=== PATIENT | male | born 1960 | race Caucasian/White ===

== ENCOUNTER 2017-08-22 15:25 | Inpatient (IN) | payer OTHER ==
[2017-08-22] MEDS ORDERED: SODIUM CHLORIDE 0.9% 1,000 ML IV STA (15:48)
[2017-08-22 16:20] LABS: HCT 20.4 % (39.0-53.0); MCH 33.2 pg (25.0-35.0); MCHC 34.3 g/dL (31.0-37.0); MCV 96.7 fL (80.0-100.0); Macrocytosis Slight; Mean Platelet Volume 7.2; Platelet Count 301 k/uL (150-450); RBC 2.11 m/uL (4.30-5.90); RDW 15.9 % (11.5-15.5); WBC 20.3 k/uL (3.8-10.6)
[2017-08-22] MEDS ORDERED: METOCLOPRAMIDE 5 MG/ML 2 ML VIAL IVP STA (16:21)
[2017-08-22] MEDS ORDERED: MECLIZINE 12.5 MG TAB PO STA (16:21)
[2017-08-22 16:27] LABS: ALT 31 U/L (21-72); AST 28 U/L (17-59); Albumin 2.9 g/dL (3.5-5.0); Alkaline Phosphatase 42 U/L (38-126); Anion Gap 9 mmol/L; Blood Urea Nitrogen 37 mg/dL (9-20); Calcium 8.3 mg/dL (8.4-10.2); Carbon Dioxide 22 mmol/L (22-30); Chloride 109 mmol/L (98-107); Glucose 151 mg/dL (74-99); Lipase 130 U/L (23-300); Potassium 4.4 mmol/L (3.5-5.1); Sodium 140 mmol/L (137-145); Total Bilirubin <0.1 mg/dL (0.2-1.3); Total Protein 5.4 g/dL (6.3-8.2)
[2017-08-22 17:10] LABS: Lymphocytes # (M) 5.89 k/uL (1.0-4.8); Neutrophils % (M) 59 %
[2017-08-22 17:11] LABS: Band Neutrophils % 6 %; Monocytes # (M) 1.02 k/uL (0-1.0); Nucleated Red Blood Cells 0 /100 WBC (0-0); Total Cells Counted 100
--- NOTE | 2017-08-22 17:19 | CT ---
EXAMINATION TYPE: CT brain wo con DATE OF EXAM: 08/22/2017 COMPARISON: NONE HISTORY: Dizziness x2 days CT DLP: 1061.[address] of the brain was performed. The ventricles, basal cisterns and sulci overlying the cerebral convexities demonstrate a normal appe arance. There is no evidence for intracranial hemorrhage or sulcal effacement. No mass effects are seen. Osseous calvarium is intact. If symptoms persist consider MRI as clinically warranted. IMPRESSION: 1. No acute intracranial process is seen at this time.
--- NOTE | 2017-08-22 17:20 | ED ---
General Adult HPI - General Chief complaint: Dizziness Stated complaint: Dizziness Time Seen by Provider: 08/22/17 15:47 Source: patient, EMS, RN notes reviewed Mode of arrival: EMS Limitations: no limitations - History of Present Illness Initial comments: This is a 56-year-old male presents emergency department via EMS chief complaint of dizziness, shortness of breath. Patient states symptoms started over the weekend progressively gotten worse. He states he just feels more lightheaded feels has not passed out. He has no current chest pain or shortness breath. He does take medications for hypertension. Patient adds in that he is [facility] trying to get sober from alcohol. Patient states that he wanted rehab prior to this. Patient states she 's also had some intermittent blurred vision states that it seems to come and go no current blurred vision. Denies any focal weakness. Patient denies any abdominal pain including nausea, vomiting diarrhea constipation. Patient denies any dysuria no hematuria. - Related Data Home Medications Medication Instructions Recorded Confirmed Gabapentin [Neurontin] 300 mg PO [facility] 08/22/17 08/22/17 Gabapentin [Neurontin] 600 mg PO 08/22/17 08/22/17 Lisinopril [Prinivil] 10 mg PO DAILY 08/22/17 08/22/17 Loratadine [Claritin] 10 mg PO DAILY 08/22/17 08/22/17 traZODone HCL [Desyrel] 100 mg PO HS 08/22/17 08/22/17 Allergies Allergy/AdvReac Type Severity Reaction Status Date / Time No Known Allergies Allergy Verified 08/22/17 16:27 Review of Systems ROS Statement: Those systems with pertinent positive or pertinent negative responses have been documented in the HPI. ROS Other: All systems not noted in ROS Statement are negative. Past Medical History Past Medical History: Hypertension, Sleep Apnea/CPAP/BIPAP History of Any Multi-Drug Resistant Organisms: None Reported Past Surgical History: Cholecystectomy Past Psychological History: Depression Smoking Status: Current every day smoker Past Alcohol Use History: Abuse Past Drug Use History: None Reported General Exam Limitations: no limitations General appearance: alert, in no apparent distress Head exam: Present: atraumatic, normocephalic, normal inspection Eye exam: Present: normal appearance, PERRL, EOMI. Absent: scleral icterus, conjunctival injection, periorbital swelling ENT exam: Present: normal exam, mucous membranes moist Neck exam: Present: normal inspection, full ROM. Absent: tenderness, meningismus, lymphadenopathy Respiratory exam: Present: normal lung sounds bilaterally. Absent: respiratory distress, wheezes, rales, rhonchi, stridor Cardiovascular Exam: Present: normal rhythm, tachycardia, normal heart sounds. Absent: systolic murmur, diastolic murmur, rubs, gallop, clicks GI/Abdominal exam: Present: soft, normal bowel sounds. Absent: distended, tenderness, guarding, rebound, rigid Neurological exam: Present: alert, oriented X3, CN II-XII intact, reflexes normal. Absent: motor sensory deficit Skin exam: Present: warm, dry, intact, normal color. Absent: rash Course Vital Signs 08/22/17 08/22/17 15:40 16:12 Temperature 97.8 F Pulse Rate 110 H 100 Respiratory 18 19 Rate Blood Pressure 137/58 102/50 O2 Sat by Pulse 96 97 Oximetry - Reevaluation(s) Reevaluation #1: 08/22/17 17:19 Patient updated on hemoglobin current 7.0. Patient states that he has had some black tarry stools., No history of anemia. EKG Findings - EKG Comments: EKG Findings:: EKG performed at 15:50 sinus tachycardia with a rate of 104 GA 162 QRS 80 QT/QTC 350/460 Medical Decision Making - Medical Decision Making 56-year-old male presents emergency Department chief complaint of feeling dizzy short of breath. Patient started to have anemia hemoglobin 7. Patient complains of black tarry stools. He refuses rectal exam at this time. Patient was started on Protonix given 1 unit of blood. Patient does have moderate leukocytosis no focal signs of infection at this time. Patient is stable he'll be admitted with transfusion, every 6 H&H and consult GI. - Lab Data Result diagrams: 08/22/17 16:08 08/22/17 16:08 Lab Results 08/22/17 08/22/17 08/22/17 Range/Units 16:08 16:08 16:08 WBC 20.3 H (3.8-10.6) k/uL RBC 2.11 L (4.30-5.90) m/uL Hgb 7.0 L* (13.0-17.5) gm/dL Hct 20.4 L (39.0-53.0) % MCV 96.7 (80.0-100.0) fL MCH 33.2 (25.0-35.0) pg MCHC 34.3 (31.0-37.0) g/dL RDW 15.9 H (11.5-15.5) % Plt Count 301 (150-450) k/uL Neutrophils % (Manual) 59 % Band Neutrophils % 6 % Lymphocytes % (Manual) 29 % Monocytes % (Manual) 5 % Eosinophils % (Manual) 1 % Neutrophils # (Manual) 13.10 H (1.3-7.7) k/uL Lymphocytes # (Manual) 5.89 H (1.0-4.8) k/uL Monocytes # (Manual) 1.02 H (0-1.0) k/uL Eosinophils # (Manual) 0.20 (0-0.7) k/uL Nucleated RBCs 0 (0-0) /100 WBC Manual Slide Review Performed Macrocytosis Slight D-Dimer (<0.60) mg/L FEU Sodium 140 (137-145) mmol/L Potassium 4.4 (3.5-5.1) mmol/L Chloride 109 H (98-107) mmol/L Carbon Dioxide 22 (22-30) mmol/L Anion Gap 9 mmol/L BUN 37 H (9-20) mg/dL Creatinine 0.80 (0.66-1.25) mg/dL Est GFR (CKD-EPI)AfAm >90 (>60 ml/min/1.73 sqM) Est GFR (CKD-EPI)NonAf >90 (>60 ml/min/1.73 sqM) Glucose 151 H (74-99) mg/dL Calcium 8.3 L (8.4-10.2) mg/dL Total Bilirubin <0.1 L (0.2-1.3) mg/dL AST 28 (17-59) U/L ALT 31 (21-72) U/L Alkaline Phosphatase 42 (38-126) U/L Troponin I <0.012 (0.000-0.034) ng/mL Total Protein 5.4 L (6.3-8.2) g/dL Albumin 2.9 L (3.5-5.0) g/dL Lipase 130 (23-300) U/L Blood Type Blood Type Recheck Antibody Screen Crossmatch Spec Expiration Date 08/22/17 08/22/17 Range/Units 16:08 16:08 WBC (3.8-10.6) k/uL RBC (4.30-5.90) m/uL Hgb (13.0-17.5) gm/dL Hct (39.0-53.0) % MCV (80.0-100.0) fL MCH (25.0-35.0) pg MCHC (31.0-37.0) g/dL RDW (11.5-15.5) % Plt Count (150-450) k/uL Neutrophils % (Manual) % Band Neutrophils % % Lymphocytes % (Manual) % Monocytes % (Manual) % Eosinophils % (Manual) % Neutrophils # (Manual) (1.3-7.7) k/uL Lymphocytes # (Manual) (1.0-4.8) k/uL Monocytes # (Manual) (0-1.0) k/uL Eosinophils # (Manual) (0-0.7) k/uL Nucleated RBCs (0-0) /100 WBC Manual Slide Review Macrocytosis D-Dimer 0.26 (<0.60) mg/L FEU Sodium (137-145) mmol/L Potassium (3.5-5.1) mmol/L Chloride (98-107) mmol/L Carbon Dioxide (22-30) mmol/L Anion Gap mmol/L BUN (9-20) mg/dL Creatinine (0.66-1.25) mg/dL Est GFR (CKD-EPI)AfAm (>60 ml/min/1.73 sqM) Est GFR (CKD-EPI)NonAf (>60 ml/min/1.73 sqM) Glucose (74-99) mg/dL Calcium (8.4-10.2) mg/dL Total Bilirubin (0.2-1.3) mg/dL AST (17-59) U/L ALT (21-72) U/L Alkaline Phosphatase (38-126) U/L Troponin I (0.000-0.034) ng/mL Total Protein (6.3-8.2) g/dL Albumin (3.5-5.0) g/dL Lipase (23-300) U/L Blood Type B Negative Blood Type Recheck CABO Indicated Antibody Screen NEGATIVE Crossmatch See Detail Spec Expiration Date 08/25/20172307 Disposition Clinical Impression: Anemia, Melena, Dizziness, Shortness of breath, Leukocytosis Disposition: ADMITTED IP TO THIS [facility] Condition: Fair Referrals: None,Stated [Primary Care Provider] - 1-2 days
--- NOTE | 2017-08-22 17:21 | XR ---
EXAMINATION TYPE: XR chest 2V DATE OF EXAM: 08/22/2017 CLINICAL HISTORY: Chest pain TECHNIQUE: Frontal and lateral views of the chest are obtained. COMPARISON: None FINDINGS: There is no focal air space opacity, pleural effusion, or pneumothorax seen. The cardiac silhouette size is within normal limits. The osseous structures are intact. IMPRESSION: No acute cardiopulmonary process.
[2017-08-22] MEDS ORDERED: PANTOPRAZOLE 40 MG/10 ML VIAL IVP STA (17:29)
[2017-08-22] MEDS ORDERED: ONDANSETRON 4 MG/2 ML VIAL IVP PRN (17:31)
[2017-08-22 18:20] LABS: Appearance,Urine Clear (Clear); Bilirubin,Urine Negative (Negative); Blood,Urine Negative (Negative); Color,Urine Yellow; Glucose,Urine (UA) Negative (Negative); Ketones,Urine Negative (Negative); Leukocyte Esterase,Urine Negative (Negative); Nitrite,Urine Negative (Negative); PH, Urine 5.5 (5.0-8.0); Protein,Urine Negative (Negative); Specific Gravity,Urine 1.021 (1.001-1.035); Urobilinogen,Urine <2.0 mg/dL (<2.0)
[2017-08-22] MEDS: SODIUM CHLORIDE 0.9% 1,000 ML IV SCH (21:32)
[2017-08-22] MEDS: traZODone HCL 100 MG TAB PO SCH (21:46)
[2017-08-22] MEDS: PANTOPRAZOLE 40 MG/10 ML VIAL IVP SCH (21:46)
[2017-08-22] MEDS: GABAPENTIN 300 MG CAP PO SCH (21:46)
[2017-08-22] MEDS: ACETAMINOPHEN TAB 325 MG TAB PO PRN (23:42)
[2017-08-23] MEDS ORDERED: SODIUM CHLORIDE 0.9% 500 ML IV ONE (00:51)
[2017-08-23] MEDS: SODIUM CHLORIDE 0.9% 1,000 ML IV SCH ×4 (01:52→22:07)
[2017-08-23 03:11] LABS: Anisocytosis Slight; Basophils # (A) 0.1 k/uL (0-0.2); Basophils % (A) 1 %; Eosinophils # (A) 0.2 k/uL (0-0.7); Eosinophils % (A) 1 %; Lymphocytes % (A) 33 %; MCH 32.7 pg (25.0-35.0); MCHC 33.3 g/dL (31.0-37.0); MCV 98.2 fL (80.0-100.0); Macrocytosis Slight; Mean Platelet Volume 7.4; Monocytes # (A) 0.8 k/uL (0-1.0); Monocytes % (A) 5 %; Neutrophils # (A) 9.1 k/uL (1.3-7.7); Neutrophils % (A) 59 %; Platelet Count 235 k/uL (150-450); RBC 1.95 m/uL (4.30-5.90); RDW 16.9 % (11.5-15.5); WBC 15.4 k/uL (3.8-10.6)
[2017-08-23 03:24] LABS: ALT 29 U/L (21-72); AST 27 U/L (17-59); Albumin 2.3 g/dL (3.5-5.0); Alkaline Phosphatase 37 U/L (38-126); Anion Gap 7 mmol/L; Blood Urea Nitrogen 31 mg/dL (9-20); Calcium 7.8 mg/dL (8.4-10.2); Carbon Dioxide 22 mmol/L (22-30); Chloride 109 mmol/L (98-107); Glucose 105 mg/dL (74-99); Potassium 4.1 mmol/L (3.5-5.1); Sodium 138 mmol/L (137-145); Total Bilirubin 0.3 mg/dL (0.2-1.3); Total Protein 4.6 g/dL (6.3-8.2)
[2017-08-23 03:45] LABS: HGB 6.4 gm/dL (13.0-17.5)
[2017-08-23 03:47] LABS: HCT 19.2 % (39.0-53.0)
[2017-08-23] MEDS: ACETAMINOPHEN TAB 325 MG TAB PO PRN ×2 (05:53→20:51)
[2017-08-23 06:25] LABS: Polychromasia Present
[2017-08-23] MEDS: GABAPENTIN 300 MG CAP PO SCH ×2 (08:40→20:48)
[2017-08-23] MEDS: LISINOPRIL 10 MG TAB PO SCH ×2 (08:40→08:41)
[2017-08-23] MEDS: PANTOPRAZOLE 40 MG/10 ML VIAL IVP SCH ×2 (08:41→20:48)
--- NOTE | 2017-08-23 09:22 | P.CONS ---
History of Present Illness - Reason for Consult Consult date: 08/23/17 Anemia melena Requesting physician: Diamante Molina - History of Present Illness 56-year-old gentleman recovering alcoholic sober since May, PM sleep apnea , chronic back pain, nicotine cigarette dependency, depression, and hypertension admitted with lightheadedness weakness since Monday with a 2 week history of 1 to 3 black colored bowel movements daily. Denies chest pain Admission hemoglobin 7 decreased to 6.4 he is receiving 2 units of blood. MCV 98. Platelet 235. BUN 37. Creatinine 0.8. Last dark colored black bowel movement was yesterday. Denies abdominal pain fever chills or weight loss. No history of GI bleed or peptic ulcer disease. No history of EGD colonoscopy. No NSAIDs aspirin or alcohol. Review of Systems Constitutional: Denies fever, chills, sweats, weight gain, or loss. Admitted with lightheadedness dizziness weakness. HEENT: Negative for migraines, blurred vision or loss, earaches, drainage, tinnitus, oral mucosal lesions, dysphagia, or odynophagia. Cardiac: Negative for chest pain, arrhythmias, or palpitation. Respiratory: Negative for shortness of breath, hemoptysis, cough, or sputum production. Gastrointestinal: See HPI for pertinent findings. Genitourinary: Negative for hematuria, urgency, frequency, polyuria, dysuria, or penile discharge. Musculoskeletal: Negative for muscle aches, swelling, arthritis, and arthralgias. Neurologic: Negative for stroke or TIA. Endocrine: Negative for thyroid problems. Skin: Negative for rash or itching. Psychiatric: Negative history for depression and anxiety Past Medical History Past Medical History: Hypertension, Pneumonia, Sleep Apnea/CPAP/BIPAP Additional Past Medical History / Comment(s): "poor circulation", chronic back pain History of Any Multi-Drug Resistant Organisms: None Reported Past Surgical History: Cholecystectomy Past Anesthesia/Blood Transfusion Reactions: No Reported Reaction Additional Past Anesthesia/Blood Transfusion Reaction / Comm: mild clausterphobia Smoking Status: Current every day smoker - Past Family History Father Family Medical History: Cancer, Diabetes Mellitus Additional Family Medical History / Comment(s): colon cancer Mother Family Medical History: Cancer Additional Family Medical History / Comment(s): breast cancer survivor Medications and Allergies Home Medications Medication Instructions Recorded Confirmed Type Gabapentin [Neurontin] 300 mg PO QAM 08/22/17 08/22/17 History Gabapentin [Neurontin] 600 mg PO HS 08/22/17 08/22/17 History Lisinopril [Prinivil] 10 mg PO DAILY 08/22/17 08/22/17 History Loratadine [Claritin] 10 mg PO DAILY 08/22/17 08/22/17 History traZODone HCL [Desyrel] 100 mg PO HS 08/22/17 08/22/17 History Allergies Allergy/AdvReac Type Severity Reaction Status Date / Time No Known Allergies Allergy Verified 08/22/17 16:27 Physical Exam Vitals: Vital Signs Temp Pulse Pulse Resp BP BP BP 08/23/17 09:20 98.3 F 94 18 110/56 08/23/17 06:59 96.8 F L 101 H 16 84/52 08/23/17 06:29 99.6 F 101 H 16 76/52 08/23/17 06:19 97.4 F L 99 16 96/52 08/23/17 05:58 100.4 F H 66 18 110/55 08/23/17 03:21 99 94/46 08/23/17 02:12 81/45 08/23/17 02:05 98.7 F 102 H 16 79/42 08/23/17 00:34 101.4 F H 101 H 16 77/41 08/22/17 23:28 99.1 F 103 H 16 87/53 08/22/17 22:20 100 F H 100 16 95/48 08/22/17 21:51 98.4 F 99 18 95/48 08/22/17 21:41 98.9 F 103 H 18 87/46 08/22/17 21:32 98.6 F 100 16 76/53 08/22/17 18:58 98.1 F 90 18 102/51 08/22/17 17:57 99.9 F H 103 H 18 96/55 08/22/17 16:12 100 19 102/50 08/22/17 15:40 97.8 F 110 H 18 137/58 Pulse Ox 08/23/17 09:20 95 08/23/17 06:59 94 L 08/23/17 06:29 93 L 08/23/17 06:19 93 L 08/23/17 05:58 92 L 08/23/17 03:21 08/23/17 02:12 08/23/17 02:05 08/23/17 00:34 96 08/22/17 23:28 96 08/22/17 22:20 97 08/22/17 21:51 98 08/22/17 21:41 97 08/22/17 21:32 97 08/22/17 18:58 98 08/22/17 17:57 96 08/22/17 16:12 97 08/22/17 15:40 96 Intake and Output 08/22/17 08/23/17 08/23/17 22:59 06:59 14:59 Intake Total 0 310 310 Output Total 450 Balance 0 -140 310 Intake: Blood Product 0 310 310 Rc Pheresis 2 As3 Unit 0 310 [id number] Rc Pheresis 2 As3 Unit 0 310 [id number] Output: Urine 450 Other: # Voids 2 Weight 139.706 kg General appearance: The patient is alert, oriented, in no acute distress. HET: Head is normocephalic and atraumatic. Pupils are equal and reactive. Oropharynx is clear without lesions. Neck: Supple without lymphadenopathy. Trachea midline. Heart: S1 S2. Regular rate and rhythm. Lungs: No crackles or wheezes are heard. Abdomen: Soft, nontender, nondistended with bowel sounds. No peritoneal signs. No palpable organomegaly or masses. Extremities: Normal skin color and turgor. No cyanosis, rash, ulceration, clubbing, or edema. Radial and pedal pulses are 2/4 bilaterally. Neurological: No focal deficits. Strength and sensation are grossly intact. Results CBC & Chem 7: 08/24/17 08:48 08/23/17 02:50 Labs: Abnormal Lab Results - Last 24 Hours (Table) 08/22/17 08/22/17 08/22/17 Range/Units 16:08 16:08 16:08 WBC 20.3 H (3.8-10.6) k/uL RBC 2.11 L (4.30-5.90) m/uL Hgb 7.0 L* (13.0-17.5) gm/dL Hct 20.4 L (39.0-53.0) % RDW 15.9 H (11.5-15.5) % Neutrophils # (1.3-7.7) k/uL Neutrophils # (Manual) 13.10 H (1.3-7.7) k/uL Lymphocytes # (1.0-4.8) k/uL Lymphocytes # (Manual) 5.89 H (1.0-4.8) k/uL Monocytes # (Manual) 1.02 H (0-1.0) k/uL Chloride 109 H (98-107) mmol/L BUN 37 H (9-20) mg/dL Glucose 151 H (74-99) mg/dL Plasma Lactic Acid Germain (0.7-2.0) mmol/L Calcium 8.3 L (8.4-10.2) mg/dL Total Bilirubin <0.1 L (0.2-1.3) mg/dL Alkaline Phosphatase (38-126) U/L Total Protein 5.4 L (6.3-8.2) g/dL Albumin 2.9 L (3.5-5.0) g/dL Crossmatch See Detail 08/23/17 08/23/17 08/23/17 Range/Units 02:50 02:50 02:50 WBC 15.4 H (3.8-10.6) k/uL RBC 1.95 L (4.30-5.90) m/uL Hgb 6.4 L* (13.0-17.5) gm/dL Hct 19.2 L* (39.0-53.0) % RDW 16.9 H (11.5-15.5) % Neutrophils # 9.1 H (1.3-7.7) k/uL Neutrophils # (Manual) (1.3-7.7) k/uL Lymphocytes # 5.0 H (1.0-4.8) k/uL Lymphocytes # (Manual) (1.0-4.8) k/uL Monocytes # (Manual) (0-1.0) k/uL Chloride 109 H (98-107) mmol/L BUN 31 H (9-20) mg/dL Glucose 105 H (74-99) mg/dL Plasma Lactic Acid Germain 0.6 L (0.7-2.0) mmol/L Calcium 7.8 L (8.4-10.2) mg/dL Total Bilirubin (0.2-1.3) mg/dL Alkaline Phosphatase 37 L (38-126) U/L Total Protein 4.6 L (6.3-8.2) g/dL Albumin 2.3 L (3.5-5.0) g/dL Crossmatch Assessment and Plan (1) Symptomatic anemia Narrative/Plan: 56-year-old male admitted with 2 week history of melena with development of lightheadedness dizziness admission hemoglobin 7.0 decreased to 6.4 receiving 2 units of blood. Possible peptic ulcer disease possible small bowel source possible esophageal gastric varices with history of underlying EtOH abuse sober 3 months. Current Visit: Yes Status: Acute Code(s): D64.9 - ANEMIA, UNSPECIFIED SNOMED Code(s): 540707592 (2) GI bleed Current Visit: Yes Status: Acute Code(s): K92.2 - GASTROINTESTINAL HEMORRHAGE, UNSPECIFIED SNOMED Code(s): 75764658 (3) Acute blood loss anemia Current Visit: Yes Status: Acute Code(s): D62 - ACUTE POSTHEMORRHAGIC ANEMIA SNOMED Code(s): 877171985 (4) Morbid obesity with BMI of 40.0-44.9, adult Current Visit: Yes Status: Acute Code(s): E66.01 - MORBID (SEVERE) OBESITY DUE TO EXCESS CALORIES; Z68.41 - BODY MASS INDEX (BMI) 40.0-44.9, ADULT SNOMED Code(s): 108937460 (5) Melena Current Visit: Yes Status: Acute Code(s): K92.1 - MELENA SNOMED Code(s): 3326559 Plan: 1. Protonix 40 mg twice a day. 2. CBC monitoring. 3. EGD colonoscopy recommended and scheduled tomorrow. 4. Clear liquid diet. Nothing by mouth after midnight. The business services vice president has discussed the risks, benefits and alternative therapies for the above-mentioned procedure and for both sedation/analgesia as well as necessary blood product administration, if indicated, as they pertain to this patient. The patient has indicated understanding and acceptance of the risks and procedures discussed. Thank you for this kind referral and the opportunity to participate in the care of your patient. This consultation was discussed with Dr. Viveros. The impression and plan of care have been directed as dictated.
[2017-08-23 10:49] LABS: Anisocytosis Slight; Basophils # (A) 0.1 k/uL (0-0.2); Basophils % (A) 1 %; Eosinophils # (A) 0.3 k/uL (0-0.7); Eosinophils % (A) 2 %; HGB 7.1 gm/dL (13.0-17.5); Lymphocytes # (A) 4.3 k/uL (1.0-4.8); Lymphocytes % (A) 32 %; MCH 32.7 pg (25.0-35.0); MCHC 33.6 g/dL (31.0-37.0); MCV 97.3 fL (80.0-100.0); Macrocytosis Slight; Mean Platelet Volume 7.1; Monocytes # (A) 0.6 k/uL (0-1.0); Monocytes % (A) 5 %; Neutrophils % (A) 59 %; Platelet Count 241 k/uL (150-450); RBC 2.15 m/uL (4.30-5.90); RDW 17.2 % (11.5-15.5); WBC 13.5 k/uL (3.8-10.6)
[2017-08-23] MEDS ORDERED: BISACODYL 5 MG TABLET.DR PO ONE (11:00)
--- NOTE | 2017-08-23 14:11 | P.HPIM ---
History of Present Illness H&P Date: 08/22/17 Chief Complaint: Dizziness and shortness of breath Patient is a 56-year-old male with a known history of hypertension, obstructive sleep apnea on CPAP at home, alcohol abuse and has not been taking since June 03, depression and morbid obesity came to the hospital with complaints of dizziness, shortness of breath. Patient states symptoms started over the weekend progressively gotten worse. He states he just feels more lightheaded feels has not passed out. He has no current chest pain or shortness breath. He does take medications for hypertension. Patient adds in that he is [facility] to get sober from alcohol. Patient states that he wanted rehab prior to this. Patient states she's also had some intermittent blurred vision states that it seems to come and go no current blurred vision. Denies any focal weakness. Patient denies any abdominal pain including nausea, vomiting diarrhea constipation. Patient denies any dysuria no hematuria. Patient was found have dark-colored stools lab the last few days. Denied any complaints of chest pain. Hemoglobin was 7 on admission. Denied any abdominal pain. No nausea vomiting. No sharron blood in the stools. No history of NSAID use. No history of prior EGD 0r colonoscopy. CT head showed no acute intracranial process Chest x-ray negative EKG showed sinus tachycardia BUN 37 Review of Systems Constitutional: Patient denies any fever or chills . A christopher does have generalized weakness and dizziness Abdomen: Patient denied nausea vomiting and diarrhea and abdominal pain. Cardiovascular: No compressive chest pain. Patient does have exertional short of breath. No palpitations or leg swelling Respiratory: patient denied any cough is from production. Neurologic: Patient denied any numbness or tingling headache. Dizziness and lightheadedness Musculoskeletal: Patient denies any complaints of joint swelling or deformity. Skin: Negative Psychiatric: Negative Endocrine: No heat or cold intolerance. No recent weight gain. Genitourinary: No dysuria or hematuria. All other 14 point ROS negative except the above Past Medical History Past Medical History: Hypertension, Sleep Apnea/CPAP/BIPAP History of Any Multi-Drug Resistant Organisms: None Reported Past Surgical History: Cholecystectomy Past Psychological History: Depression Smoking Status: Current every day smoker Past Alcohol Use History: Abuse Past Drug Use History: None Reported - Past Family History Father Family Medical History: Cancer, Diabetes Mellitus Additional Family Medical History / Comment(s): colon cancer Mother Family Medical History: Cancer Additional Family Medical History / Comment(s): breast cancer survivor Medications and Allergies Home Medications Medication Instructions Recorded Confirmed Type Gabapentin [Neurontin] 300 mg PO QAM 08/22/17 08/22/17 History Gabapentin [Neurontin] 600 mg PO HS 08/22/17 08/22/17 History Lisinopril [Prinivil] 10 mg PO DAILY 08/22/17 08/22/17 History Loratadine [Claritin] 10 mg PO DAILY 08/22/17 08/22/17 History traZODone HCL [Desyrel] 100 mg PO HS 08/22/17 08/22/17 History Allergies Allergy/AdvReac Type Severity Reaction Status Date / Time No Known Allergies Allergy Verified 08/22/17 16:27 Physical Exam Vitals: Vital Signs Temp Pulse Resp BP Pulse Ox 08/22/17 18:58 98.1 F 90 18 102/51 98 08/22/17 17:57 99.9 F H 103 H 18 96/55 96 08/22/17 16:12 100 19 102/50 97 08/22/17 15:40 97.8 F 110 H 18 137/58 96 Intake and Output 08/22/17 08/22/17 08/22/17 06:59 14:59 22:59 Other: Weight 139.706 kg PHYSICAL EXAMINATION: Patient is lying in the bed comfortably, no acute distress, awake alert and oriented.. HEENT: Normocephalic. Neck is supple. Pupils reactive. Nostrils clear. Oral cavity is moist. Ears reveal no drainage. Neck reveals no JVD, carotid bruits, or thyromegaly. CHEST EXAMINATION: Trachea is central. Symmetrical expansion. Lung cardona clear to auscultation and percussion. CARDIAC: Normal S1, S2 with no gallops. No murmurs ABDOMEN: Soft. Bowel sounds normal. No organomegaly. No abdominal bruits. Extremities: reveal no edema. No clubbing or cyanosis Neurologically awake, alert, oriented x3 with well-coordinated movements. No focal deficits noted Skin: No rash or skin lesions. Psychiatric: Coperative. Nonsuicidal Musculoskeletal: No joint swelling or deformity. Normal range of motion. Results CBC & Chem 7: 08/23/17 10:36 08/23/17 02:50 Labs: Abnormal Lab Results - Last 24 Hours (Table) 08/22/17 08/22/17 08/22/17 Range/Units 16:08 16:08 16:08 WBC 20.3 H (3.8-10.6) k/uL RBC 2.11 L (4.30-5.90) m/uL Hgb 7.0 L* (13.0-17.5) gm/dL Hct 20.4 L (39.0-53.0) % RDW 15.9 H (11.5-15.5) % Neutrophils # (Manual) 13.10 H (1.3-7.7) k/uL Lymphocytes # (Manual) 5.89 H (1.0-4.8) k/uL Monocytes # (Manual) 1.02 H (0-1.0) k/uL Chloride 109 H (98-107) mmol/L BUN 37 H (9-20) mg/dL Glucose 151 H (74-99) mg/dL Calcium 8.3 L (8.4-10.2) mg/dL Total Bilirubin <0.1 L (0.2-1.3) mg/dL Total Protein 5.4 L (6.3-8.2) g/dL Albumin 2.9 L (3.5-5.0) g/dL Crossmatch See Detail Thrombosis Risk Factor Assmnt - DVT/VTE Prophylaxis DVT/VTE Prophylaxis: Mechanical Prophylaxis ordered Assessment and Plan Assessment: Acute blood loss anemia likely upper GI. Hemoglobin 7 on admission. Status post 2 units of PRBC transfusion Symptomatic anemia with dizziness shortness of breath and lightheadedness Obstructive sleep apnea on CPAP at home Hypertension History of alcohol abuse. Quit since June 03 2017 Morbid obesity BMI 44.2 DVT prophylaxis with SCDs Plan: Patient will be continued on IV hydration and IV Protonix. Monitor H&H closely. GI consult. We will continue the home medications and further recommendations based on the clinical course. Time with Patient: Greater than 30
[2017-08-23] MEDS ORDERED: PEG 3350-NA SULF,BICARB,CL/KCL 4,000 ML BOTTLE PO ONE (16:00)
[2017-08-23 16:34] LABS: Anisocytosis Slight; Basophils # (A) 0.1 k/uL (0-0.2); Basophils % (A) 1 %; Eosinophils # (A) 0.2 k/uL (0-0.7); Eosinophils % (A) 1 %; HGB 7.6 gm/dL (13.0-17.5); Lymphocytes % (A) 35 %; MCHC 34.7 g/dL (31.0-37.0); MCV 95.2 fL (80.0-100.0); Macrocytosis Slight; Monocytes # (A) 0.7 k/uL (0-1.0); Monocytes % (A) 5 %; Neutrophils # (A) 7.6 k/uL (1.3-7.7); Neutrophils % (A) 56 %; Platelet Count 250 k/uL (150-450); RBC 2.31 m/uL (4.30-5.90); RDW 16.9 % (11.5-15.5); WBC 13.7 k/uL (3.8-10.6)
[2017-08-23 16:36] LABS: Lymphocytes # (A) 4.8 k/uL (1.0-4.8)
[2017-08-23] MEDS: traZODone HCL 100 MG TAB PO SCH (20:48)
[2017-08-23 23:04] VITALS: RESP 18
[2017-08-24] MEDS: SODIUM CHLORIDE 0.9% 1,000 ML IV SCH ×3 (05:31→17:21)
[2017-08-24] MEDS ORDERED: BISACODYL 5 MG TABLET.DR PO STA (08:06)
[2017-08-24] MEDS ORDERED: MAGNESIUM CITRATE 296 ML BOTTLE PO ONE (08:07)
[2017-08-24] MEDS ORDERED: POLYETHYLENE GLYCOL 3350 17 GM POWD.PACK PO STA ×2 (08:08)
[2017-08-24] MEDS: GABAPENTIN 300 MG CAP PO SCH ×2 (08:32→20:33)
[2017-08-24] MEDS: PANTOPRAZOLE 40 MG/10 ML VIAL IVP SCH ×2 (08:32→20:33)
[2017-08-24] MEDS: LISINOPRIL 10 MG TAB PO SCH (08:32)
[2017-08-24] MEDS: ACETAMINOPHEN TAB 325 MG TAB PO PRN ×2 (08:41→20:34)
[2017-08-24 09:51] LABS: Anisocytosis Slight; Basophils % (A) 0 %; Eosinophils # (A) 0.2 k/uL (0-0.7); Eosinophils % (A) 2 %; HCT 23.4 % (39.0-53.0); HGB 7.9 gm/dL (13.0-17.5); Lymphocytes # (A) 2.9 k/uL (1.0-4.8); Lymphocytes % (A) 29 %; MCH 32.8 pg (25.0-35.0); MCHC 33.6 g/dL (31.0-37.0); MCV 97.7 fL (80.0-100.0); Macrocytosis Slight; Mean Platelet Volume 7.6; Monocytes # (A) 0.5 k/uL (0-1.0); Monocytes % (A) 5 %; Neutrophils # (A) 6.2 k/uL (1.3-7.7); Neutrophils % (A) 63 %; Platelet Count 235 k/uL (150-450); RDW 17.5 % (11.5-15.5); WBC 9.8 k/uL (3.8-10.6)
[2017-08-24] MEDS ORDERED: LACTATED RINGERS 1,000 ML IV SCH (12:10)
[2017-08-24] MEDS ORDERED: GLYCOPYRROLATE 0.2 MG/ML 2 ML VIAL ONE (14:58)
[2017-08-24] MEDS ORDERED: KETAMINE 10 MG/ML 20 ML VIAL ONE (14:58)
[2017-08-24] MEDS ORDERED: PROPOFOL 10 MG/ML 20 ML VIAL IV ONE (14:58)
[2017-08-24] MEDS ORDERED: LIDOCAINE 1% INJ 10MG/ML (20 ML MDV) ONE (14:58)
[2017-08-24] MEDS ORDERED: LACTATED RINGERS 1,000 ML IV ONE (15:10)
--- NOTE | 2017-08-24 15:52 | P.PCN ---
Date of Procedure: 08/24/17 Procedure(s) Performed: Procedures: 1. Esophagogastroduodenoscopy and biopsy. 2. Total colonoscopy. Preoperative diagnosis: GI bleeding and anemia. Postoperative diagnosis: 1. Hiatal hernia with no obvious esophagitis or complicated reflux disease. 2. Mild gastritis and duodenitis. 3. Poor preparation of the colon with no obvious pathology or active bleeding. Preparation: GoLYTELY prep. Sedation: Was provided by anesthesia. 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 Denies chest pain. Admission hemoglobin 7 decreased to 6.4 requiring transfusions. MCV 98. Platelet 235. BUN 37. Creatinine 0.8. Last dark colored black bowel movement was yesterday. Denies abdominal pain fever chills or weight loss. No history of GI bleed or peptic ulcer disease. No history of prior EGD or colonoscopy. No NSAIDs aspirin or alcohol. I the details are summarized in the history and physical and dictated consultations and progress notes. Procedure: With the patient on his left lateral decubitus position and after informed consent and adequate sedation, I passed the Olympus-GIF 160 video upper endoscope through the cricopharyngeus down the esophagus. GE junction was around 41 cm from the incisors and there was a small sliding hiatal hernia but no obvious esophagitis or complicated reflux disease. There were no mucosal tears or varices. The endoscope was then passed into the stomach which was insufflated with air and inspected in detail including the retroflex view in the cardia. There was some mottling and erythema in the antrum consistent with gastritis but there were no ulcers, erosions or bleeding. Pyloric channel did not show any ulcers. Duodenal bulb showed similar findings all mottling, erythema and friability but there were no ulcers or bleeding post bulbar area and descending duodenum appeared within normal limits. I obtained biopsies from the antrum then the endoscope was withdrawn and I proceeded with the colonoscopy. Perianal area did not show any fissures or fistulas. There were no masses felt on digital rectal examination. The Olympus CFQ 160L video colonoscope was then inserted in the rectum in the usual fashion and advanced to the cecum. Unfortunately, the preparation was poor and there was significant amount of thick black fecal water. No obvious abnormalities were noted or any active bleeding. Certainly, with the poor preparation, small polyps or superficial pathology could have been overlooked. The patient tolerated the procedure well. Plan: The patient was reassured. Will allow diet as tolerated and continue PPI therapy. Will continue to monitor his blood counts. Consideration can be given for repeat colonoscopy in the future after more adequate preparation, the timing will depend on his course.
[2017-08-24] MEDS: traZODone HCL 100 MG TAB PO SCH (20:33)
[2017-08-24 23:40] VITALS: TEMP 97.8
[2017-08-25] MEDS: SODIUM CHLORIDE 0.9% 1,000 ML IV SCH ×2 (01:57→05:27)
[2017-08-25 06:14] VITALS: BP 103/57; PULSE 83
[2017-08-25] MEDS: GABAPENTIN 300 MG CAP PO SCH (08:25)
[2017-08-25] MEDS: PANTOPRAZOLE 40 MG/10 ML VIAL IVP SCH (08:25)
[2017-08-25] MEDS: LISINOPRIL 10 MG TAB PO SCH (08:25)
--- NOTE | 2017-08-25 09:40 | P.PN ---
Subjective Progress Note Date: 08/25/17 Principal diagnosis: GI bleed melena and anemia Admitted with symptomatic anemia and melena status post EGD colonoscopy yesterday with no evidence of peptic ulcer disease. Colon was poorly prepped but no obvious areas of bleeding. Feels well this morning. Anticipating discharge. No further episodes of melena. Hemoglobin yesterday 7.9. Objective - Vital Signs Vital signs: Vital Signs Temp 97.8 F 08/25/17 05:40 Pulse 83 08/25/17 05:40 Resp 18 08/25/17 05:40 BP 103/57 08/25/17 05:40 Pulse Ox 94 L 08/25/17 05:40 Intake & Output 08/24/17 08/25/17 08/25/17 18:59 06:59 18:59 Intake Total 400 2400 200 Output Total 1300 Balance 400 1100 200 Intake: IV 400 2400 Sodium Chloride 0.9% 1, 2400 000 ml @ 150 mls/hr IV . Q6H40M ELANA Rx#:[id number] Oral 200 Output: Urine 1300 Other: # Bowel Movements 3 - Exam General appearance: The patient is alert, oriented, in no acute distress. HET: Head is normocephalic and atraumatic. Pupils are equal and reactive. Oropharynx is clear without lesions. Neck: Supple without lymphadenopathy. Trachea midline. Heart: S1 S2. Regular rate and rhythm. Lungs: No crackles or wheezes are heard. Abdomen: Soft, nontender, nondistended with bowel sounds. No peritoneal signs. No palpable organomegaly or masses. Extremities: Normal skin color and turgor. No cyanosis, rash, ulceration, clubbing, or edema. Radial and pedal pulses are 2/4 bilaterally. Neurological: No focal deficits. Strength and sensation are grossly intact. - Labs CBC & Chem 7: 08/24/17 08:48 08/23/17 02:50 Labs: Abnormal Lab Results - Last 24 Hours (Table) 08/24/17 Range/Units 08:48 RBC 2.40 L (4.30-5.90) m/uL Hgb 7.9 L (13.0-17.5) gm/dL Hct 23.4 L (39.0-53.0) % RDW 17.5 H (11.5-15.5) % Assessment and Plan (1) Symptomatic anemia Narrative/Plan: Etiology unclear. Status post EGD colonoscopy no evidence of peptic ulcer disease colon poorly prepped no obvious signs of bleeding possible small bowel source. Current Visit: Yes Status: Acute Code(s): D64.9 - ANEMIA, UNSPECIFIED SNOMED Code(s): 828112150 (2) GI bleed Current Visit: Yes Status: Acute Code(s): K92.2 - GASTROINTESTINAL HEMORRHAGE, UNSPECIFIED SNOMED Code(s): 62732413 (3) Acute blood loss anemia Current Visit: Yes Status: Acute Code(s): D62 - ACUTE POSTHEMORRHAGIC ANEMIA SNOMED Code(s): 946512021 (4) Morbid obesity with BMI of 40.0-44.9, adult Current Visit: Yes Status: Acute Code(s): E66.01 - MORBID (SEVERE) OBESITY DUE TO EXCESS CALORIES; Z68.41 - BODY MASS INDEX (BMI) 40.0-44.9, ADULT SNOMED Code(s): 973418542 (5) Melena Current Visit: Yes Status: Acute Code(s): K92.1 - MELENA SNOMED Code(s): 1178720 Plan: 1. Discharge per medicine. Follow-up in office in 7-10 days for reevaluation and discussion of outpatient colonoscopy. CBC in 3-5 days. Assessment and plan a care discussed with Dr. Ewing
== END 2017-08-25 12:36 | disposition home or self-care (01) | DRG 378 ==
LOC: EC 15:25 → 4MS4W 17:28
PROVIDERS: ADMIT Internal Medicine; ATTEND Internal Medicine
PROC: 30233N1 Transfusion of Nonautologous Red Blood Cells into Peripheral Vein, Percutaneous Approach (ICD-10-PCS; principal; 2017-08-22)
PROC: 0DJD8ZZ Inspection of Lower Intestinal Tract, Via Natural or Artificial Opening Endoscopic (ICD-10-PCS; 2017-08-24)
PROC: 0DB78ZX Excision of Stomach, Pylorus, Via Natural or Artificial Opening Endoscopic, Diagnostic (ICD-10-PCS; 2017-08-24 15:45)
DX: K92.1 Melena (principal); D62 Acute posthemorrhagic anemia; Z68.41 Body mass index [BMI] 40.0-44.9, adult; G47.33 Obstructive sleep apnea (adult) (pediatric); I10 Essential (primary) hypertension; E66.01 Morbid (severe) obesity due to excess calories; F32.9 Major depressive disorder, single episode, unspecified; R00.0 Tachycardia, unspecified; F17.210 Nicotine dependence, cigarettes, uncomplicated; F10.21 Alcohol dependence, in remission; G89.29 Other chronic pain; M54.9 Dorsalgia, unspecified; K44.9 Diaphragmatic hernia without obstruction or gangrene; K29.70 Gastritis, unspecified, without bleeding; K29.80 Duodenitis without bleeding; Z83.3 Family history of diabetes mellitus; Z80.3 Family history of malignant neoplasm of breast; Z79.899 Other long term (current) drug therapy; Z87.01 Personal history of pneumonia (recurrent); Z90.49 Acquired absence of other specified parts of digestive tract; Z80.0 Family history of malignant neoplasm of digestive organs
CPT/HCPCS: 36415; 43239; 45378; 70450; 71046; 80053; 81003; 83605; 83690; 84484; 85025; 85379; 86850; 86900; 86901; 86920; 88305; 93005; 94660; 94760; 96361; 96374; 99285